=== PATIENT | male | born 1990 ===

== ENCOUNTER 2018-02-12 22:04 | Inpatient (IN) | payer OTHER ==
--- NOTE | 2018-02-12 22:23 | C.PDOC ---
History Of Present Illness 27 y/o male brought to the ED by EMS after being found unresponsive. Patient drove his car to girlfriends house and parked, the girlfriend noticed him not moving in the car, unresponsive, so she called EMS. She states she was shaking him and patient was drooling. EMS gave 20 mg Narcan in the field and patient became responsive. On arrival to the ED patient appears AAOx3. He denies any suicidal or homicidal ideation. States that he snorted some cocaine today. Denies any heroin abuse. Time Seen by Provider: 02/12/18 22:23 Chief Complaint (Nursing): Substance Abuse History Per: Patient History/Exam Limitations: intoxication Onset/Duration Of Symptoms: Mins Current Symptoms Are (Timing): Better Suicide/Self Injury Attempted (Context): None Modifying Factor(s): Cocaine Severity: None Pain Scale Rating Of: 0 Associated Symptoms: denies: Anger, Anxiety, Depression, Suicidal Plan Involuntary Hold By: None Recent travel outside of the [place]: No Additional History Per: Family, Girlfriend Past Medical History Reviewed: Historical Data, Nursing Documentation, Vital Signs Vital Signs: Last Vital Signs Temp 98.2 F 02/13/18 04:57 Pulse 83 02/13/18 04:57 Resp 16 02/13/18 04:57 BP 109/65 02/13/18 04:57 Pulse Ox 64 L 02/13/18 05:07 - Medical History PMH: No Chronic Diseases Surgical History: No Surg Hx Family History: States: No Known Family Hx - Social History Hx Tobacco Use: Yes Hx Alcohol Use: Yes Hx Substance Use: Yes (marijuana, cocaine) - Immunization History Hx Tetanus Toxoid Vaccination: No Hx Influenza Vaccination: No Hx Pneumococcal Vaccination: No Review Of Systems Except As Marked, All Systems Reviewed And Found Negative. Constitutional: Negative for: Fever Cardiovascular: Negative for: Chest Pain Respiratory: Negative for: Shortness of Breath Gastrointestinal: Negative for: Nausea, Vomiting Psych: Positive for: Other (substance abuse) Physical Exam - Physical Exam Appears: No Acute Distress Skin: Warm, Dry Head: Normacephalic Eye(s): bilateral: Normal Inspection (pupils dilated), PERRL, EOMI Oral Mucosa: Moist Tongue: Normal Appearing Lips: Normal Appearing Teeth: Normal Dentition Throat: No Erythema Neck: Trachea Midline, Supple Chest: Symmetrical Cardiovascular: Rhythm Regular Respiratory: No Rales, No Rhonchi, No Wheezing Gastrointestinal/Abdominal: Soft, No Tenderness, No Distention Back: No CVA Tenderness Extremity: Normal ROM Extremity: Bilateral: Atraumatic, Normal Color And Temperature, Normal ROM Pulses: Left Dorsalis Pedis: Normal, Right Dorsalis Pedis: Normal Neurological/Psych: Oriented x3, Normal Speech, Normal Cognition Gait: Steady ED Course And Treatment - Laboratory Results Result Diagrams: 02/12/18 22:30 02/12/18 22:30 ECG: Interpreted By Me, Viewed By Me ECG Rhythm: Sinus Rhythm (87), Nonspecific Changes O2 Sat by Pulse Oximetry: 64 Pulse Ox Interpretation: Abnormal (placed on oxygen. 100% on nrm) - Radiology CXR: Interpreted by Me, Viewed By Me Progress Note: Ordered labs, EKG, CXR. Patient given IVF hydration. Reevaluation Time: 01:08 Reassessment Condition: Improved Critical Care Time - Critical Care Note Total Time (in mins): 30 Documented critical care: time excludes all time spent performing seperately billable procedures. Disposition Discussed With DrJorge Luis: John Manzo Comment: accepted the pt on his service and took over the care at 6:10AM Doctor Will See Patient In The: ED Counseled Patient/Family Regarding: Studies Performed, Diagnosis, Need For Followup - Disposition Referrals: [facility] [Outside] [facility] [Outside] Disposition: HOME/ ROUTINE Disposition Time: 22:23 Condition: FAIR Instructions: Polysubstance Abuse (DC) Forms: [facility] (Irish) - POA Present On Arrival: None - Clinical Impression Clinical Impression: Polysubstance abuse - Scribe Statement The provider has reviewed the documentation as recorded by the Scribe (Laura Menon) Provider Attestation: All medical record entries made by the Scribe were at my direction and personally dictated by me. I have reviewed the chart and agree that the record accurately reflects my personal performance of the history, physical exam, medical decision making, and the department course for this patient. I have also personally directed, reviewed, and agree with the discharge instructions and disposition.
[2018-02-12] MEDS ORDERED: Sodium Chloride 0.9% 1,000 ML IV ONE (22:32)
[2018-02-12 22:41] LABS: BASO % 0.2 % (0.0-2.0); EOS # 0.2 K/uL (0.0-0.7); EOS % 1.8 % (0.0-4.0); LYMPH # 4.9 K/uL (1.0-4.3); LYMPH % 38.5 % (20.0-40.0); MEAN CELL VOLUME 84.6 fL (80.0-94.0); MEAN CORPUSCULAR HEMOGLOBIN 29.2 pg (27.0-31.0); MEAN CORPUSCULAR HGB CONC 34.5 g/dL (33.0-37.0); MEAN PLATELET VOLUME 9.6 fL (7.2-11.7); MONO # 1.2 K/uL (0.0-0.8); MONO % 9.1 % (0.0-10.0); NEUT # 6.4 K/uL (1.8-7.0); NEUT % 50.4 % (50.0-75.0); NRBC % 0.1 % (0.0-2.0); RBC 5.83 Mil/uL (4.40-5.90); RED CELL DISTRIBUTION WIDTH 13.2 % (11.5-14.5); WHITE BLOOD COUNT 12.7 K/uL (4.8-10.8)
[2018-02-12 22:54] LABS: ALB/GLOB RATIO 1.1 (1.0-2.1); ALBUMIN 4.6 g/dL (3.5-5.0); ALT/SGPT 29 U/L (21-72); AST/SGOT 29 U/L (17-59); BLOOD UREA NITROGEN 19 mg/dL (9-20); CALCIUM 9.2 mg/dl (8.6-10.4); GFR AFRICAN-AMERICAN > 60; GFR NON-AFRICAN AMERICAN > 60
[2018-02-13 00:17] LABS: SQUAMOUS EPITHIAL < 1 /hpf (0-5); URINE BILIRUBIN NEGATIVE (NEGATIVE); URINE BLOOD 1+ (NEGATIVE); URINE CLARITY Hazy (Clear); URINE COLOR Yellow (YELLOW); URINE GLUCOSE (UA) 3+ mg/dL (Normal); URINE LEUKOCYTE ESTERASE NEG Leu/uL (Negative); URINE PROTEIN 2+ mg/dL (NEGATIVE); URINE UROBILINOGEN NORMAL mg/dL (0.2-1.0)
[2018-02-13 00:26] LABS: BARBITURATES, UR NEGATIVE (NEGATIVE); BENZODIAZEPINES, UR NEGATIVE (NEGATIVE); OPIATES, UR NEGATIVE (NEGATIVE); PHENCYCLIDINE, UR NEGATIVE (NEGATIVE)
[2018-02-13] MEDS ORDERED: Albuterol-Ipratrop 3 mg / 0.5 (3 ml) UD ONE ×2 (01:22→01:59)
[2018-02-13] MEDS: Albuterol-Ipratrop 3 mg / 0.5 (3 ml) UD IH SCH ×3 (01:24→01:56)
[2018-02-13] MEDS ORDERED: Potassium Chloride 20 mEq ER Tab PO STA (01:28)
[2018-02-13] MEDS ORDERED: Potassium Chloride 20 mEq ER Tab PO ONE ×2 (01:35→17:26)
[2018-02-13] MEDS ORDERED: Iodixanol 320 MG/ML 100 ML BOTTLE IV ONE (03:16)
[2018-02-13 03:17] LABS: ABG ALLEN TEST POS; ARTERIAL BLOOD GAS HCO3 24.6 mmol/L (21-28); ARTERIAL BLOOD GAS O2 SAT 93.6 % (95-98); ARTERIAL BLOOD GAS PCO2 52 mm/Hg (35-45); ARTERIAL BLOOD GAS PH 7.32 (7.35-7.45); ARTERIAL BLOOD GAS PO2 62 mm/Hg (80-100); ARTERIAL BLOOD GAS TCO2 28.4 mmol/L (22-28)
--- NOTE | 2018-02-13 04:47 | CT ---
EXAM: CT Angiography Chest With Intravenous Contrast EXAM DATE/TIME: 02/13/2018 2:41 AM CLINICAL HISTORY: 27 years old, male; Pain; Chest pain and other: Hypoxia TECHNIQUE: Axial computed tomographic angiography images of the chest with intravenous contrast using pulmonary embolism protocol. All CT scans at this facility use one or more dose reduction techniques, viz.: automated exposure control; ma/kV adjustment per patient size (including targeted exams where dose is matched to indication; i.e. head); or iterative reconstruction technique. MIP reconstructed images were created and reviewed. Coronal and sagittal reformatted images were created and reviewed. CONTRAST: 100 mL of [id number] administered intravenously. COMPARISON: No relevant prior studies available. FINDINGS: PULMONARY ARTERIES: Main pulmonary artery segment is mildly enlarged, a finding which can be seen with pulmonary hypertension. Recommend clinical correlation. Contrast opacification of the pulmonary arteries is somewhat suboptimal, however, the exam is considered diagnostic for pulmonary emboli, and there are no filling defects seen to suggest pulmonary emboli. AORTA: No evidence of aortic dissection. LUNGS: Abnormal groundglass density in the lungs bilaterally, highly suspicious for diffuse, bilateral groundglass consolidation. This is greatest in the left lower lobe, and relatively spares spares the right middle lobe and lingula. Incidental 6 x 4 mm noncalcified pulmonary nodule in the right lung, image 103/series 2. For low-risk patients, no follow-up is necessary. For high-risk patients (smoking history or other known risk factors) an optional chest CT at 12 months could be performed. PLEURAL SPACE: No pneumothorax or pleural effusions seen. HEART: No evidence of significant pericardial effusion. MEDIASTINUM: Small hiatal hernia. BONES/JOINTS: No acute bony abnormality identified. SOFT TISSUES: No acute abnormality of the visualized soft tissues seen. LYMPH NODES: No evidence of diffuse lymphadenopathy. IMPRESSION: - Diffuse bilateral groundglass consolidation. In an acute setting, this is most likely secondary to atypical pneumonia or pulmonary edema. Other possible etiologies include hypersensitivity pneumonitis, diffuse alveolar hemorrhage, or acute eosinophilic pneumonia. - Otherwise, no evidence of significant acute process. - Incidental 5 mm pumonary nodule. - See above for remaining findings.
[2018-02-13 05:48] LABS: B-TYPE NATRIURETIC PEPTIDE 22.5 pg/mL (0-450)
--- NOTE | 2018-02-13 06:08 | CP.PCM.HP ---
<LamAundrea kitchenJorge Luis - Last Filed: 02/13/18 06:50> History of Present Illness - History of Present Illness History of Present Illness: HPI: 27 year old male with no past medical history presents to the ER after his girlfriend found him non-responsive in his car (care was turned off) on her driveway. Per family they removed the patient from the car and called 911. EMS told them to initiate CPR upon EMS arrival patient became responsive in the ambulance. Per patient he smoked marijuana and snorted 2 lines of cocaine before arriving to his girlfriend's house. He states the last thing he remembers was feeling a bit nauseated so he went and sat down in his car and called his girlfriend for her to open the back door to her house. Per family he was probably alone for about 15-20minutes until his girlfriend found him. Per patient this has never occurred before. Patient states he had a minor cold with nasal congestion last week but no other symptoms. He currently denies chest pain, shortness of breath, nausea, vomiting, diarrhea or constipation. PMD: none Past Medical History: per patient he has self diagnosed himself with sleep apnea but has not completed a sleep study. Patient states he is trying to decrease his weight. 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; Started snorting cocaine November 2017 and then again yesterday evening (2 lines); marijuana daily; cigarettes 1 pack per day for the last 10 years Present on Admission - Present on Admission Any Indicators Present on Admission: No Review of Systems - Constitutional Constitutional: absent: Chills, Fever - EENT Eyes: absent: Blurred Vision - Cardiovascular Cardiovascular: absent: Chest Pain, Dyspnea, Palpitations, Pedal Edema - Gastrointestinal Gastrointestinal: absent: Abdominal Pain, Constipation, Nausea, Vomiting - Genitourinary Genitourinary: absent: Dysuria - Neurological Neurological: Syncope. absent: Dizziness Past Patient History - Infectious Disease Hx of Infectious Diseases: None - Past Social History Smoking Status: Heavy Smoker > 10 Cigarettes Daily - PSYCHIATRIC Hx Substance Use: Yes (marijuana, cocaine) - SURGICAL HISTORY Hx Surgeries: No - ANESTHESIA Hx Anesthesia: No Hx Anesthesia Reactions: No Meds Allergies/Adverse Reactions: Allergies Allergy/AdvReac Type Severity Reaction Status Date / Time No Known Allergies Allergy Verified 02/12/18 22:21 Physical Exam - Constitutional Appears: No Acute Distress - Head Exam Head Exam: ATRAUMATIC, NORMAL INSPECTION - Eye Exam Eye Exam: EOMI, Normal appearance, PERRL Pupil Exam: NORMAL ACCOMODATION - ENT Exam ENT Exam: Mucous Membranes Moist - Respiratory Exam Respiratory Exam: Clear to Auscultation Bilateral, NORMAL BREATHING PATTERN - Cardiovascular Exam Cardiovascular Exam: REGULAR RHYTHM, +S1, +S2 - GI/Abdominal Exam GI & Abdominal Exam: Normal Bowel Sounds, Soft. absent: Tenderness - Extremities Exam Extremities exam: Positive for: normal inspection. Negative for: pedal edema, tenderness - Neurological Exam Neurological exam: Alert, CN II-XII Intact, Oriented x3 - Psychiatric Exam Psychiatric exam: Normal Affect, Normal Mood - Skin Skin Exam: Normal Color Results - Vital Signs Recent Vital Signs: Last Vital Signs Temp 98.2 F 02/13/18 04:57 Pulse 83 02/13/18 04:57 Resp 16 02/13/18 04:57 BP 109/65 02/13/18 04:57 Pulse Ox 64 L 02/13/18 05:07 - Labs Result Diagrams: 02/12/18 22:30 02/12/18 22:30 Labs: Laboratory Results - last 24 hr 02/12/18 02/12/18 02/12/18 22:28 22:30 22:30 WBC 12.7 H RBC 5.83 Hgb 17.0 Hct 49.3 MCV 84.6 MCH 29.2 MCHC 34.5 RDW 13.2 Plt Count 296 MPV 9.6 Neut % (Auto) 50.4 Lymph % (Auto) 38.5 [place] % (Auto) 9.1 Eos % (Auto) 1.8 Baso % (Auto) 0.2 Neut # (Auto) 6.4 Lymph # (Auto) 4.9 H [place] # (Auto) 1.2 H Eos # (Auto) 0.2 Baso # (Auto) 0.0 Puncture Site pCO2 pO2 HCO3 ABG pH ABG Total CO2 ABG O2 Saturation ABG Base Excess Mark Test ABG Potassium A-a O2 Difference Respiratory Index Glucose Lactate Liter Flow FiO2 Sodium 140 Potassium 2.9 L Chloride 95 L Carbon Dioxide 27 Anion Gap 22 H BUN 19 Creatinine 1.2 Est GFR ( Amer) > 60 Est GFR (Non-Af Amer) > 60 POC Glucose (mg/dL) 245 H Random Glucose 296 H Calcium 9.2 Total Bilirubin 0.7 AST 29 ALT 29 Alkaline Phosphatase 90 Troponin I NT-Pro-B Natriuret Pep Total Protein 8.9 H Albumin 4.6 Globulin 4.3 H Albumin/Globulin Ratio 1.1 Arterial Blood Potassium Urine Color Urine Clarity Urine pH Ur Specific [place] Urine Protein Urine Glucose (UA) Urine Ketones Urine Blood Urine Nitrate Urine Bilirubin Urine Urobilinogen Ur Leukocyte Esterase Urine WBC (Auto) Urine RBC (Auto) Ur Squamous Epith Cells Hyaline Casts Urine Opiates Screen Urine Methadone Screen Ur Barbiturates Screen Ur Phencyclidine Scrn Ur Amphetamines Screen U Benzodiazepines Scrn U Oth Cocaine Metabols U Cannabinoids Screen Alcohol, Quantitative < 10 02/12/18 02/12/18 02/13/18 23:55 23:55 03:10 WBC RBC Hgb Hct MCV MCH MCHC RDW Plt Count MPV Neut % (Auto) Lymph % (Auto) [place] % (Auto) Eos % (Auto) Baso % (Auto) Neut # (Auto) Lymph # (Auto) [place] # (Auto) Eos # (Auto) Baso # (Auto) Puncture Site Rr pCO2 52 H pO2 62 L HCO3 24.6 ABG pH 7.32 L ABG Total CO2 28.4 H ABG O2 Saturation 93.6 L ABG Base Excess -0.1 Mark Test Pos ABG Potassium 3.6 A-a O2 Difference 73.0 Respiratory Index 1.2 Glucose 152 H Lactate 1.5 Liter Flow 2.0 FiO2 28.0 Sodium 139.0 Potassium Chloride 102.0 Carbon Dioxide Anion Gap BUN Creatinine Est GFR ( Amer) Est GFR (Non-Af Amer) POC Glucose (mg/dL) Random Glucose Calcium Total Bilirubin AST ALT Alkaline Phosphatase Troponin I NT-Pro-B Natriuret Pep Total Protein Albumin Globulin Albumin/Globulin Ratio Arterial Blood Potassium 3.6 Urine Color Yellow Urine Clarity Hazy Urine pH 6.0 Ur Specific [place] 1.016 Urine Protein 2+ H Urine Glucose (UA) 3+ H Urine Ketones Negative Urine Blood 1+ H Urine Nitrate Negative Urine Bilirubin Negative Urine Urobilinogen Normal Ur Leukocyte Esterase Neg Urine WBC (Auto) 6 H Urine RBC (Auto) 4 H Ur Squamous Epith Cells < 1 Hyaline Casts 11-20 H Urine Opiates Screen Negative Urine Methadone Screen Negative Ur Barbiturates Screen Negative Ur Phencyclidine Scrn Negative Ur Amphetamines Screen Negative U Benzodiazepines Scrn Negative U Oth Cocaine Metabols Positive H U Cannabinoids Screen Positive H Alcohol, Quantitative 02/13/18 05:06 WBC RBC Hgb Hct MCV MCH MCHC RDW Plt Count MPV Neut % (Auto) Lymph % (Auto) [place] % (Auto) Eos % (Auto) Baso % (Auto) Neut # (Auto) Lymph # (Auto) [place] # (Auto) Eos # (Auto) Baso # (Auto) Puncture Site pCO2 pO2 HCO3 ABG pH ABG Total CO2 ABG O2 Saturation ABG Base Excess Mark Test ABG Potassium A-a O2 Difference Respiratory Index Glucose Lactate Liter Flow FiO2 Sodium Potassium Chloride Carbon Dioxide Anion Gap BUN Creatinine Est GFR ( Amer) Est GFR (Non-Af Amer) POC Glucose (mg/dL) Random Glucose Calcium Total Bilirubin AST ALT Alkaline Phosphatase Troponin I < 0.0120 NT-Pro-B Natriuret Pep 22.5 Total Protein Albumin Globulin Albumin/Globulin Ratio Arterial Blood Potassium Urine Color Urine Clarity Urine pH Ur Specific [place] Urine Protein Urine Glucose (UA) Urine Ketones Urine Blood Urine Nitrate Urine Bilirubin Urine Urobilinogen Ur Leukocyte Esterase Urine WBC (Auto) Urine RBC (Auto) Ur Squamous Epith Cells Hyaline Casts Urine Opiates Screen Urine Methadone Screen Ur Barbiturates Screen Ur Phencyclidine Scrn Ur Amphetamines Screen U Benzodiazepines Scrn U Oth Cocaine Metabols U Cannabinoids Screen Alcohol, Quantitative Assessment & Plan - Assessment and Plan (Free Text) Assessment: 1.) Syncope s/p cocaine use - CPR was initiated on the field - EMS gave the patient narcan - Upon arrival to the ER patient was responsive and per ER note AAOx3 - EKG: NSR 2.) Inflammatory Lung Reaction - CT chest: - Diffuse bilateral groundglass consolidation. In an acute setting , this is most likely secondary to atypical pneumonia or pulmonary edema. Other possible etiologies include hypersensitivity pneumonitis, diffuse alveolar hemorrhage, or acute eosinophilic pneumonia. Otherwise, no evidence of significant acute process. Incidental 5 mm pumonary nodule. - f/u chest xray - NC 3L prn - Solumedrol 40mg q8h 3.) Aspiration Pneumonia - CT chest: - Diffuse bilateral groundglass consolidation. In an acute setting , this is most likely secondary to atypical pneumonia or pulmonary edema. Other possible etiologies include hypersensitivity pneumonitis, diffuse alveolar hemorrhage, or acute eosinophilic pneumonia. Otherwise, no evidence of significant acute process. Incidental 5 mm pumonary nodule. - Ceftriaxone 1gm daily - Doxycycline 100g q12h 4.) Prophylaxis - Pepcid - SCDs Case discussed with Dr. Jovany Lam PGY-1 <John Manzo P - Last Filed: 02/14/18 06:34> Results - Vital Signs Recent Vital Signs: Last Vital Signs Temp 98.2 F 02/13/18 16:01 Pulse 80 02/13/18 16:01 Resp 20 02/13/18 16:01 BP 129/74 02/13/18 16:01 Pulse Ox 98 02/13/18 16:01 - Labs Result Diagrams: 02/12/18 22:30 02/13/18 16:52 Labs: Laboratory Results - last 24 hr 02/13/18 16:52 Sodium 137 Potassium 4.5 Chloride 100 Carbon Dioxide 26 Anion Gap 16 BUN 17 Creatinine 0.8 Est GFR ( Amer) > 60 Est GFR (Non-Af Amer) > 60 Random Glucose 126 H Calcium 9.2 Total Bilirubin 0.6 AST 22 ALT 22 Alkaline Phosphatase 76 Total Protein 7.8 Albumin 4.1 Globulin 3.6 Albumin/Globulin Ratio 1.1 Attending/Attestation - Attestation I have personally seen and examined this patient.: Yes I have fully participated in the care of the patient.: Yes I have reviewed all pertinent clinical information: Yes Notes (Text): See note on the same day.
--- NOTE | 2018-02-13 06:27 | CP.PCM.PN ---
Subjective - Date & Time of Evaluation Date of Evaluation: 02/13/18 Time of Evaluation: 06:21 - Subjective Subjective: Found unresponsive post inhalation of substance used as cocaine, about 15-20 mins, in hospital hypoxic, CTA showing diffuse alveolar reaction, dd of arrhythmia -> aspiration-> reaction vs severe lung reaction -> hypoxia-> brief resp arrest. Patient currently alert, oriented x3, feeling tired, needing about 3lit o2 via nc to keeps spo2 around 95 at rest. Plan Empiric steroid to prevent recurrent or delayed reaction Empiric abx for aspiration Due to diffuse wide involvement if above worsen patient should be in hospital. Counselled about tobacco, marijuana, cocaine and any substance abuse. Objective - Vital Signs/Intake and Output Vital Signs (last 24 hours): Temp Pulse Resp BP Pulse Ox 98.2 F 83 16 109/65 64 L 02/13/18 04:57 02/13/18 04:57 02/13/18 04:57 02/13/18 04:57 02/13/18 06:10 - Medications Medications: Current Medications Famotidine (Pepcid) 20 mg PO DAILY [facility] Doxycycline Hyclate 100 mg/ (Sodium Chloride) 100 mls @ 100 mls/hr IVPB Q12H ANA PRN Reason: Protocol Ceftriaxone Sodium 1 gm/ (Sodium Chloride) 100 mls @ 100 mls/hr IVPB DAILY ANA PRN Reason: Protocol Methylprednisolone (Solu-Medrol) 40 mg IV Q8H ANA - Labs Labs: 02/12/18 22:30 02/12/18 22:30
[2018-02-13] MEDS: MethylPREDNISolone 40 mg Vial IV SCH ×2 (07:07→13:40)
[2018-02-13] MEDS ORDERED: MethylPREDNISolone 40 mg Vial ONE (07:13)
[2018-02-13] MEDS ORDERED: Potassium Chloride 10 mEq ER Tab PO SCH (08:00)
[2018-02-13 08:04] VITALS: RESP 20; O2SAT 98
--- NOTE | 2018-02-13 09:51 | RAD ---
PROCEDURE: CHEST RADIOGRAPH, 1 VIEW HISTORY: Detox/Psy COMPARISON: None available. FINDINGS: LUNGS: The lungs are well inflated and clear. PLEURA: No pneumothorax or pleural fluid seen. CARDIOVASCULAR: Normal. OSSEOUS STRUCTURES: No significant abnormalities. VISUALIZED UPPER ABDOMEN: Normal. OTHER FINDINGS: None. IMPRESSION: No active pulmonary disease.
[2018-02-13] MEDS ORDERED: Potassium Chloride 20 mEq ER Tab PO SCH (11:15)
[2018-02-13 16:02] VITALS: BP 129/74; PULSE 80; TEMP 98.2
--- NOTE | 2018-02-13 17:15 | CP.PCM.DIS ---
<Tai Reyes - Last Filed: 02/13/18 17:25> Provider - Provider Date of Admission: 02/13/18 06:06 Attending physician: John Manzo MD Primary care physician: PMD: none Time Spent in preparation of Discharge (in minutes): 33 Diagnosis - Discharge Diagnosis (1) Aspiration pneumonia Status: Acute Priority: High Hospital Course - Lab Results Lab Results: Most Recent Lab Values WBC 12.7 K/uL (4.8-10.8) H 02/12/18 22:30 RBC 5.83 Mil/uL (4.40-5.90) 02/12/18 22:30 Hgb 17.0 g/dL (12.0-18.0) 02/12/18 22:30 Hct 49.3 % (35.0-51.0) 02/12/18 22:30 MCV 84.6 fL (80.0-94.0) 02/12/18 22:30 MCH 29.2 pg (27.0-31.0) 02/12/18 22:30 MCHC 34.5 g/dL (33.0-37.0) 02/12/18 22:30 RDW 13.2 % (11.5-14.5) 02/12/18 22:30 Plt Count 296 K/uL (130-400) 02/12/18 22:30 MPV 9.6 fL (7.2-11.7) 02/12/18 22:30 Neut % (Auto) 50.4 % (50.0-75.0) 02/12/18 22:30 Lymph % (Auto) 38.5 % (20.0-40.0) 02/12/18 22:30 [place] % (Auto) 9.1 % (0.0-10.0) 02/12/18 22:30 Eos % (Auto) 1.8 % (0.0-4.0) 02/12/18 22:30 Baso % (Auto) 0.2 % (0.0-2.0) 02/12/18 22:30 Neut # (Auto) 6.4 K/uL (1.8-7.0) 02/12/18 22:30 Lymph # (Auto) 4.9 K/uL (1.0-4.3) H 02/12/18 22:30 [place] # (Auto) 1.2 K/uL (0.0-0.8) H 02/12/18 22:30 Eos # (Auto) 0.2 K/uL (0.0-0.7) 02/12/18 22:30 Baso # (Auto) 0.0 K/uL (0.0-0.2) 02/12/18 22:30 Puncture Site Rr 02/13/18 03:10 pCO2 52 mm/Hg (35-45) H 02/13/18 03:10 pO2 62 mm/Hg (80-100) L 02/13/18 03:10 HCO3 24.6 mmol/L (21-28) 02/13/18 03:10 ABG pH 7.32 (7.35-7.45) L 02/13/18 03:10 ABG Total CO2 28.4 mmol/L (22-28) H 02/13/18 03:10 ABG O2 Saturation 93.6 % (95-98) L 02/13/18 03:10 ABG Base Excess -0.1 mmol/L (-2.0-3.0) 02/13/18 03:10 Mark Test Pos 02/13/18 03:10 ABG Potassium 3.6 mmol/L (3.6-5.2) 02/13/18 03:10 A-a O2 Difference 73.0 mm/Hg 02/13/18 03:10 Respiratory Index 1.2 02/13/18 03:10 Sodium 139.0 mmol/l (132-148) 02/13/18 03:10 Chloride 102.0 mmol/L (98-107) 02/13/18 03:10 Glucose 152 mg/dl (75-110) H 02/13/18 03:10 Lactate 1.5 mmol/L (0.7-2.1) 02/13/18 03:10 Liter Flow 2.0 02/13/18 03:10 FiO2 28.0 % 02/13/18 03:10 Sodium 140 mmol/L (132-148) 02/12/18 22:30 Potassium 2.9 mmol/L (3.6-5.2) L 02/12/18 22:30 Chloride 95 mmol/L (98-107) L 02/12/18 22:30 Carbon Dioxide 27 mmol/L (22-30) 02/12/18 22:30 Anion Gap 22 (10-20) H 02/12/18 22:30 BUN 19 mg/dL (9-20) 02/12/18 22:30 Creatinine 1.2 mg/dL (0.8-1.5) 02/12/18 22:30 Est GFR ( Amer) > 60 02/12/18 22:30 Est GFR (Non-Af Amer) > 60 02/12/18 22:30 POC Glucose (mg/dL) 245 mg/dL (65-110) H 02/12/18 22:28 Random Glucose 296 mg/dL (75-110) H 02/12/18 22:30 Calcium 9.2 mg/dl (8.6-10.4) 02/12/18 22:30 Total Bilirubin 0.7 mg/dL (0.2-1.3) 02/12/18 22:30 AST 29 U/L (17-59) 02/12/18 22:30 ALT 29 U/L (21-72) 02/12/18 22:30 Alkaline Phosphatase 90 U/L (38-126) 02/12/18 22:30 Troponin I < 0.0120 ng/mL (0.00-0.120) 02/13/18 05:06 NT-Pro-B Natriuret Pep 22.5 pg/mL (0-450) 02/13/18 05:06 Total Protein 8.9 g/dL (6.3-8.3) H 02/12/18 22:30 Albumin 4.6 g/dL (3.5-5.0) 02/12/18 22:30 Globulin 4.3 gm/dL (2.2-3.9) H 02/12/18 22:30 Albumin/Globulin Ratio 1.1 (1.0-2.1) 02/12/18 22:30 Arterial Blood Potassium 3.6 mmol/L (3.6-5.2) 02/13/18 03:10 Urine Color Yellow (YELLOW) 02/12/18 23:55 Urine Clarity Hazy (Clear) 02/12/18 23:55 Urine pH 6.0 (5.0-8.0) 02/12/18 23:55 Ur Specific [place] 1.016 (1.003-1.030) 02/12/18 23:55 Urine Protein 2+ mg/dL (NEGATIVE) H 02/12/18 23:55 Urine Glucose (UA) 3+ mg/dL (Normal) H 02/12/18 23:55 Urine Ketones Negative mg/dL (NEGATIVE) 02/12/18 23:55 Urine Blood 1+ (NEGATIVE) H 02/12/18 23:55 Urine Nitrate Negative (NEGATIVE) 02/12/18 23:55 Urine Bilirubin Negative (NEGATIVE) 02/12/18 23:55 Urine Urobilinogen Normal mg/dL (0.2-1.0) 02/12/18 23:55 Ur Leukocyte Esterase Neg [place]/uL (Negative) 02/12/18 23:55 Urine WBC (Auto) 6 /hpf (0-5) H 02/12/18 23:55 Urine RBC (Auto) 4 /hpf (0-3) H 02/12/18 23:55 Ur Squamous Epith Cells < 1 /hpf (0-5) 02/12/18 23:55 Hyaline Casts 11-20 /lpf (0-2) H 02/12/18 23:55 Urine Opiates Screen Negative (NEGATIVE) 02/12/18 23:55 Urine Methadone Screen Negative (NEGATIVE) 02/12/18 23:55 Ur Barbiturates Screen Negative (NEGATIVE) 02/12/18 23:55 Ur Phencyclidine Scrn Negative (NEGATIVE) 02/12/18 23:55 Ur Amphetamines Screen Negative (NEGATIVE) 02/12/18 23:55 U Benzodiazepines Scrn Negative (NEGATIVE) 02/12/18 23:55 U Oth Cocaine Metabols Positive (NEGATIVE) H 02/12/18 23:55 U Cannabinoids Screen Positive (NEGATIVE) H 02/12/18 23:55 Alcohol, Quantitative < 10 mg/dl (0-10) 02/12/18 22:30 - Hospital Course Hospital Course: HPI: 27 year old male with no past medical history presents to the ER after his girlfriend found him non-responsive in his car (care was turned off) on her driveway. Per family they removed the patient from the car and called 911. EMS told them to initiate CPR upon EMS arrival patient became responsive in the ambulance. Per patient he smoked marijuana and snorted 2 lines of cocaine before arriving to his girlfriend's house. He states the last thing he remembers was feeling a bit nauseated so he went and sat down in his car and called his girlfriend for her to open the back door to her house. Per family he was probably alone for about 15-20minutes until his girlfriend found him. Per patient this has never occurred before. Patient states he had a minor cold with nasal congestion last week but no other symptoms. He currently denies chest pain, shortness of breath, nausea, vomiting, diarrhea or constipation. PMD: none Past Medical History: per patient he has self diagnosed himself with sleep apnea but has not completed a sleep study. Patient states he is trying to decrease his weight. 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 CPR was done in the field and the patient regained consciousness in the ambulance. In hospital the patient was originally tachycardic and hypertensive. Patient admitted to snorting cocaine and smoking marijuana just prior to losing consciousness. Patient's CXR was negative and EKG showed sinus tachycardia. Chest CT showed diffuse bilateral ground-glass consolidation possibly secondary to atypical pneumonia, pulmonary edema, hypersensitivity pneumonitis, diffuse alveolar hemorrhage or acute eosinophilic pneumonia. His drug use is believed to have led to aspiration and consequently a hypoxic lung reaction. Patient was also found to be hypokalemic. Patient's heart rate and blood pressure were stabilized and patient was started on methylprednisolone 40mg IV QH, Ceftriaxone 1mg IVP, Doxycycline 100mg IVP Q12hr, famotidine 20 mg PO daily, 40 mEq KCL and admitted to the floor. Within 10 hours after original presentation patient had returned to his baseline. Upon discharge, he was no longer tachycardic or hypertensive. Patient' s oxygen saturation on room air was +95% seated and walking. Patient was discharged on augmentin 875mg/125mg and prednisone 20mg PO daily. Patient was counseled on the dangers of drug use and advised to schedule an appointment with the clinic at [facility] to initiate care. Patient was advised to return to the nearest ER if his condition begins to decline over the next 2-3 days. Discharge Exam - Head Exam Head Exam: ATRAUMATIC, NORMAL INSPECTION - Additional Findings Additional findings: - Constitutional Appears: No Acute Distress - Head Exam Head Exam: ATRAUMATIC, NORMAL INSPECTION - Eye Exam Eye Exam: EOMI, Normal appearance, PERRL Pupil Exam: NORMAL ACCOMODATION - ENT Exam ENT Exam: Mucous Membranes Moist - Respiratory Exam Respiratory Exam: Clear to Auscultation Bilateral, NORMAL BREATHING PATTERN - Cardiovascular Exam Cardiovascular Exam: REGULAR RHYTHM, +S1, +S2 - GI/Abdominal Exam GI & Abdominal Exam: Normal Bowel Sounds, Soft. absent: Tenderness - Extremities Exam Extremities exam: Positive for: normal inspection. Negative for: pedal edema, tenderness - Neurological Exam Neurological exam: Alert, CN II-XII Intact, Oriented x3 - Psychiatric Exam Psychiatric exam: Normal Affect, Normal Mood - Skin Skin Exam: Normal Color Discharge Plan - Discharge Medications Prescriptions: Amoxicillin/Clavulanate [Augmentin 875 MG-125 MG] 1 tab PO BID #18 tab Doxycycline Monohydrate 100 mg PO BID #20 tablet Lactobacillus Acidophilus [Bacid Acidophilus] 1 cap PO BID #42 cap Prednisone [Deltasone] 20 mg PO DAILY #5 tablet - Follow Up Plan Condition: FAIR Disposition: HOME/ ROUTINE Instructions: Smoking: Not Just Harmful to Your Lungs and Heart, Aspiration Pneumonia (DC), Quitting Smoking, Amoxicillin and Clavulanate, Doxycycline, Lactobacillus, Prednisone, Polysubstance Abuse (DC) Additional Instructions: Patient is medically stable for discharge. Patient will be discharged with scripts for the following medications which he should take as instructed: 1. Augmentin 875/125mg, take 1 tablet at 10AM and 1 tablet at 10PM for a total of 9 days 2. Doxycycline 100mg, take 2 tablets at 8AM and take 2 tablets at 8PM on day 1, then take 1 tablet at 8AM and 1 tablet at 8PM on days 2-9 3. Prednisone 20mg, take 1 tablet at 10AM for 5 days 4. Bacid, take 1 tablet at 1PM and 6PM for a total of 21 days Please establish care with a primary medical doctor and follow up with this doctor in 10 days and have a repeat chest xray done to make sure you lung infection is resolving. If symptoms return go to your nearest emergency department. Referrals: [facility] [Outside] [facility] at [facility] [Outside] <Artur Cadena - Last Filed: 02/13/18 18:51> Provider - Provider Date of Admission: 02/13/18 06:06 Attending physician: John Manzo MD [facility] Course - Lab Results Lab Results: Most Recent Lab Values WBC 12.7 K/uL (4.8-10.8) H 02/12/18 22:30 RBC 5.83 Mil/uL (4.40-5.90) 02/12/18 22:30 Hgb 17.0 g/dL (12.0-18.0) 02/12/18:30 Hct 49.3 % (35.0-51.0) 02/12/18:30 MCV 84.6 fL (80.0-94.0) 02/12/18 22:30 MCH 29.2 pg (27.0-31.0) 02/12/18 22: MCHC 34.5 g/dL (33.0-37.0) 02/12/18 22:30 RDW 13.2 % (11.5-14.5) 02/12/18:30 Plt Count 296 K/uL (130-400) 02/12/18 22:30 MPV 9.6 fL (7.2-11.7) 02/12/18 22:30 Neut % (Auto) 50.4 % (50.0-75.0) 02/12/18 22:30 Lymph % (Auto) 38.5 % (20.0-40.0) 02/12/18 22:30 [place] % (Auto) 9.1 % (0.0-10.0) 02/12/18 22:30 Eos % (Auto) 1.8 % (0.0-4.0) 02/12/18 22:30 Baso % (Auto) 0.2 % (0.0-2.0) 02/12/18 22:30 Neut # (Auto) 6.4 K/uL (1.8-7.0) 02/12/18 22:30 Lymph # (Auto) 4.9 K/uL (1.0-4.3) H 02/12/18 22:30 [place] # (Auto) 1.2 K/uL (0.0-0.8) H 02/12/18 22:30 Eos # (Auto) 0.2 K/uL (0.0-0.7) 02/12/18 22:30 Baso # (Auto) 0.0 K/uL (0.0-0.2) 02/12/18 22:30 Puncture Site Rr 02/13/18 03:10 pCO2 52 mm/Hg (35-45) H 02/13/18 03:10 pO2 62 mm/Hg (80-100) L 02/13/18 03:10 HCO3 24.6 mmol/L (21-28) 02/13/18 03:10 ABG pH 7.32 (7.35-7.45) L 02/13/18 03:10 ABG Total CO2 28.4 mmol/L (22-28) H 02/13/18 03:10 ABG O2 Saturation 93.6 % (95-98) L 02/13/18 03:10 ABG Base Excess -0.1 mmol/L (-2.0-3.0) 02/13/18 03:10 Mark Test Pos 02/13/18 03:10 ABG Potassium 3.6 mmol/L (3.6-5.2) 02/13/18 03:10 A-a O2 Difference 73.0 mm/Hg 02/13/18 03:10 Respiratory Index 1.2 02/13/18 03:10 Sodium 139.0 mmol/l (132-148) 02/13/18 03:10 Chloride 102.0 mmol/L (98-107) 02/13/18 03:10 Glucose 152 mg/dl (75-110) H 02/13/18 03:10 Lactate 1.5 mmol/L (0.7-2.1) 02/13/18 03:10 Liter Flow 2.0 02/13/18 03:10 FiO2 28.0 % 02/13/18 03:10 Sodium 137 mmol/L (132-148) 02/13/18 16:52 Potassium 4.5 mmol/L (3.6-5.2) 02/13/18 16:52 Chloride 100 mmol/L (98-107) 02/13/18 16:52 Carbon Dioxide 26 mmol/L (22-30) 02/13/18 16:52 Anion Gap 16 (10-20) 02/13/18 16:52 BUN 17 mg/dL (9-20) 02/13/18 16:52 Creatinine 0.8 mg/dL (0.8-1.5) 02/13/18 16:52 Est GFR ( Amer) > 60 02/13/18 16:52 Est GFR (Non-Af Amer) > 60 02/13/18 16:52 POC Glucose (mg/dL) 245 mg/dL (65-110) H 02/12/18 22:28 Random Glucose 126 mg/dL (75-110) H 02/13/18 16:52 Calcium 9.2 mg/dl (8.6-10.4) 02/13/18 16:52 Total Bilirubin 0.6 mg/dL (0.2-1.3) 02/13/18 16:52 AST 22 U/L (17-59) 02/13/18 16:52 ALT 22 U/L (21-72) 02/13/18 16:52 Alkaline Phosphatase 76 U/L (38-126) 02/13/18 16:52 Troponin I < 0.0120 ng/mL (0.00-0.120) 02/13/18 05:06 NT-Pro-B Natriuret Pep 22.5 pg/mL (0-450) 02/13/18 05:06 Total Protein 7.8 g/dL (6.3-8.3) 02/13/18 16:52 Albumin 4.1 g/dL (3.5-5.0) 02/13/18 16:52 Globulin 3.6 gm/dL (2.2-3.9) 02/13/18 16:52 Albumin/Globulin Ratio 1.1 (1.0-2.1) 02/13/18 16:52 Arterial Blood Potassium 3.6 mmol/L (3.6-5.2) 02/13/18 03:10 Urine Color Yellow (YELLOW) 02/12/18 23:55 Urine Clarity Hazy (Clear) 02/12/18 23:55 Urine pH 6.0 (5.0-8.0) 02/12/18 23:55 Ur Specific [place] 1.016 (1.003-1.030) 02/12/18 23:55 Urine Protein 2+ mg/dL (NEGATIVE) H 02/12/18 23:55 Urine Glucose (UA) 3+ mg/dL (Normal) H 02/12/18 23:55 Urine Ketones Negative mg/dL (NEGATIVE) 02/12/18 23:55 Urine Blood 1+ (NEGATIVE) H 02/12/18 23:55 Urine Nitrate Negative (NEGATIVE) 02/12/18 23:55 Urine Bilirubin Negative (NEGATIVE) 02/12/18 23:55 Urine Urobilinogen Normal mg/dL (0.2-1.0) 02/12/18 23:55 Ur Leukocyte Esterase Neg [place]/uL (Negative) 02/12/18 23:55 Urine WBC (Auto) 6 /hpf (0-5) H 02/12/18 23:55 Urine RBC (Auto) 4 /hpf (0-3) H 02/12/18 23:55 Ur Squamous Epith Cells < 1 /hpf (0-5) 02/12/18 23:55 Hyaline Casts 11-20 /lpf (0-2) H 02/12/18 23:55 Urine Opiates Screen Negative (NEGATIVE) 02/12/18 23:55 Urine Methadone Screen Negative (NEGATIVE) 02/12/18 23:55 Ur Barbiturates Screen Negative (NEGATIVE) 02/12/18 23:55 Ur Phencyclidine Scrn Negative (NEGATIVE) 02/12/18 23:55 Ur Amphetamines Screen Negative (NEGATIVE) 02/12/18 23:55 U Benzodiazepines Scrn Negative (NEGATIVE) 02/12/18 23:55 U Oth Cocaine Metabols Positive (NEGATIVE) H 02/12/18 23:55 U Cannabinoids Screen Positive (NEGATIVE) H 02/12/18 23:55 Alcohol, Quantitative < 10 mg/dl (0-10) 02/12/18 22:30 Attending/Attestation - Attestation I have personally seen and examined this patient.: Yes I have fully participated in the care of the patient.: Yes I have reviewed all pertinent clinical information, including history, physical exam and plan: Yes Notes (Text): 02/13/18 18:50 Medical attending: Patient was seen and examined by me, with the medical reception specialist. I reviewed the above note by the medical reception specialist and agree with the above note. This is a 27-year-old male who was found in his car passed out. The people finding can were very concerned and EMS was called. He was given Narcan as well as oxygen by EMS. And he woke up in the ambulance. He tells us that he remembers waking up in the ambulance. He admitted freely that he was using cocaine as well as marijuana. He underwent a CT scan in the emergency room. I went over with the patient the emergency rooms CAT scan and explained to him that when he first came in he had a very low pulse ox. I furthermore explained that it was possible that he could' ve been having an early aspiration pneumonia or what we were seeing on the CAT scan was secondary to him starting the cocaine. In the morning when we saw him we were able to walk in the hallway of [address]. We walked in without supplemental oxygen. During this time we had a pulse ox on and he was in the 95% range when walking. He was not short of breath he denied chest pain. He is speaking to us in full sentences. In the morning he wanted to go home. We came back in the afternoon and reevaluated the patient again. We also walked him again in the hallway without any oxygen and he did well. So the patient will be discharged home, he will need to take additional days of antibiotics as well as a low dose oral prednisone. I do not feel comfortable sending the patient with a beta agonists inhaler such as albuterol or Ventolin since he may use cocaine. We went over with the patient the risk of drug use, he says that he understands. I hope he takes advice to heart. Furthermore I explained to him that should he become very feverish, or develop shortness of breath that he needs to return to the emergency room. He says that he understands Thank you very much, Artur Cadena 02/13/18 18:51
[2018-02-13 17:21] LABS: ALB/GLOB RATIO 1.1 (1.0-2.1); ALBUMIN 4.1 g/dL (3.5-5.0); ALT/SGPT 22 U/L (21-72); AST/SGOT 22 U/L (17-59); BLOOD UREA NITROGEN 17 mg/dL (9-20); CALCIUM 9.2 mg/dl (8.6-10.4); GFR AFRICAN-AMERICAN > 60; GFR NON-AFRICAN AMERICAN > 60
--- NOTE | 2018-02-14 07:48 | CARD ---
APPROVED REPORT EKG Measurement Heart [id number] <Conclusion> Normal sinus rhythm Normal ECG
== END 2018-02-13 18:02 | disposition home or self-care (01) | DRG 79 ==
LOC: C.ER 22:04 → C.9E 02-13 06:06 → C.5S 02-13 06:55
PROVIDERS: ADMIT Internal Medicine; ATTEND Internal Medicine
DX: J69.0 Pneumonitis due to inhalation of food and vomit (principal); R09.02 Hypoxemia; E87.6 Hypokalemia; F17.210 Nicotine dependence, cigarettes, uncomplicated; F12.90 Cannabis use, unspecified, uncomplicated